=== PATIENT | female | born 1985 | race Caucasian/White ===

== ENCOUNTER 2019-04-26 23:41 | Emergency (ER) | payer MEDICAID ==
[~2019-04-26] VITALS: Ht 160 cm; Wt 94.1 kg
[2019-04-26 23:49] VITALS: Ht 160 cm; Wt 94.1 kg
[2019-04-26] MEDS ORDERED: CLEOCIN HCL150 MG PO (23:52)
[2019-04-26] MEDS ORDERED: ATARAX 25 MG TA25 MG PO (23:52)
[2019-04-26] MEDS ORDERED: PREDNISONE (23:53)
--- NOTE | 2019-04-27 00:20 | NUR ---
PATIENT IS NOT ACTIVELY SUICIDAL AT THIS TIME AND HAS NOT BEEN IN YEARS. NO ATTEMPT AT SUICIDE IN 3 YEARS. SHE HAS A NEW 3 MONTH OLD BABY. SUICIDE PREVENTION SHEEET GIVEN TO PATIENT.
[2019-04-27 00:55] VITALS: BP 125/82
== END 2019-04-27 00:55 | disposition home or self-care (01) ==
LOC: D.ER 23:41
DX: R21 Rash and other nonspecific skin eruption (principal); F17.200 Nicotine dependence, unspecified, uncomplicated